=== PATIENT | female | born 1995 | race African-American/Black ===

== ENCOUNTER 2017-09-19 23:08 | Emergency (ER) | payer MEDICAID ==
[~2017-09-19] VITALS: Ht 180.3 cm; Wt 102.0 kg
[2017-09-20] MEDS ORDERED: SODIUM CHLORIDE 0.9% 500 ML IV ONE (02:28)
[2017-09-20 02:49] LABS: BASOPHILS % 0.3 % (0.0-2.0); HEMATOCRIT. 32.3 % (36.0-48.0); HEMOGLOBIN. 10.6 g/dL (12.0-16.0); LYMPHOCYTES % 7.1 % (20.0-50.0); MEAN CORPUSCULAR HEMOGLOBIN 26.3 pg (28.0-32.0); MEAN CORPUSCULAR VOLUME 79.9 fL (81.0-99.0); MEAN PLATELET VOLUME 8.6 fl (7.4-10.4); MONOCYTES % 7.6 % (2.0-8.0); PLATELET 172 x1000/uL (130-400); RED BLOOD CELL COUNT 4.05 mill/uL (4.2-5.4); RED CELL DISTRIBUTION WIDTH 14.4 % (11.6-14.6)
[2017-09-20 02:52] LABS: CLARITY URINE CLEAR (CLEAR); COLOR URINE YELLOW (YELLOW); KETONES URINE TRACE (NEGATIVE); LEUKOCYTE ESTERASE URINE TRACE (NEGATIVE); NITRITE URINE NEGATIVE (NEGATIVE); OCCULT BLOOD URINE TRACE (NEGATIVE); PH URINE 5.5 (4.5-8.0); PROTEIN URINE 3+ (NEGATIVE); SPECIFIC GRAVITY URINE 1.032 (1.005-1.030); UROBILINOGEN URINE 0.2 E.U./dL (0.2-1.0)
[2017-09-20 02:56] LABS: CHLORIDE 105 mEq/L (98-107)
[2017-09-20] MEDS ORDERED: IBUPROFEN 600MG TABLET PO ONE (03:00)
[2017-09-20] MEDS ORDERED: ACETAMINOPHEN 325MG TABLET PO ONE (04:15)
[2017-09-20 04:50] VITALS: BP 147/82
== END 2017-09-20 07:05 | disposition home or self-care (01) ==
LOC: ER 09-20 07:04
DX: N39.0 Urinary tract infection, site not specified (principal)
CPT/HCPCS: 36415; 71045; 80053; 81003; 81025; 85025; 99285; J7030; Z7610

== ENCOUNTER 2017-09-24 16:16 | Emergency (ER) | payer MEDICAID ==
[~2017-09-24] VITALS: Ht 180.3 cm; Wt 102.0 kg
[2017-09-24] MEDS ORDERED: SULF1TAB47 PO (16:29)
[2017-09-24 18:09] VITALS: BP 153/102
== END 2017-09-24 18:17 | disposition home or self-care (01) ==
LOC: ER 16:16
DX: L03.113 Cellulitis of right upper limb (principal); Z87.440 Personal history of urinary (tract) infections
CPT/HCPCS: 73130; 81025; 99284

== ENCOUNTER 2018-03-07 19:32 | Emergency (ER) | payer MEDICAID ==
[~2018-03-07] VITALS: Ht 175.3 cm; Wt 97.7 kg
[~2018-03-07 19:32] MED LIST: SULF1TAB47 PO
[2018-03-07 20:13] VITALS: BP 160/110
== END 2018-03-08 00:15 | disposition left against medical advice (07) ==
LOC: ER 19:32
DX: Z53.21 Procedure and treatment not carried out due to patient leaving prior to being seen by health care provider (principal)